=== PATIENT | female | born 1990 | race Caucasian/White ===

== ENCOUNTER 2022-02-22 16:30 | Inpatient (IN) | payer MEDICAID, SELFPAY ==
[2022-02-22 16:30] VITALS: BMI 36.6
[2022-02-22 16:39] VITALS: BP 99/73; PULSE 96; RESP 18; TEMP 36.6; O2SAT 97
--- NOTE | 2022-02-22 17:22 | PC.NURSE ---
ADMISSION- PT DIRECT ADMIT FROM [facility]. REPORTS THAT SHE HEARS VOICES THAT ARE MEAN TO HER. THIS INCREASES HER DEPRESSION AND SI. WAS HAVING SI AT HOSPITAL WITH THOUGHTS OF HANGING SELF. WAS INPATIENT LAST MONTH BUT STATES SHE HAS NOT TAKEN THE MEDS IN ONE MONTH SINCE DISCHARGE BECAUSE THEY DID NOT WORK. DENIES ANY SUBSTANCE ABUSE. UDS NEGATIVE. REPORTS HX OF DEPRESSION, ANXIETY, AND SCHIZOPHRENIA. ANSWERS ARE DELAYED BUT APPROPRIATE TO TOPIC. SHORT ANSWERS USUALLY. FLAT AFFECT.
--- NOTE | 2022-02-22 17:30 | PC.NURSE ---
ADMISSION PT DIRECT ADMIT FROM [facility]. REPORTS THAT SHE HEARS VOICES THAT ARE MEAN TO HER. THIS INCREASES HER DEPRESSION AND SI. WAS HAVING SI AT HOSPITAL WITH THOUGHTS OF HANGING SELF. WAS INPATIENT LAST MONTH BUT STATES SHE HAS NOT TAKEN THE MEDS IN ONE MONTH SINCE DISCHARGE BECAUSE THEY DID NOT WORK. DENIES ANY SUBSTANCE ABUSE. UDS NEGATIVE. REPORTS HX OF DEPRESSION, ANXIETY, AND SCHIZOPHRENIA. ANSWERS ARE DELAYED BUT APPROPRIATE TO TOPIC. SHORT ANSWERS USUALLY. FLAT AFFECT.
[2022-02-22] MEDS: trazodone 50 mg Tablet PO (20:38)
[2022-02-22 21:12] VITALS: BP 111/77; PULSE 84; RESP 16; TEMP 36.4; O2SAT 98
[2022-02-22] MEDS: hyDROXYzine 25 mg Capsule 50 MG PO (21:59)
--- NOTE | 2022-02-22 22:00 | PC.NURSE ---
pt was given trazodone 50mg po at 2037, is now requesting medication for anxiety. pt stated she could not go to sleep because she was having racing thoughts. Vistaril 50mg po given.
[2022-02-23 06:00] VITALS: BP 97/53; PULSE 80; RESP 17; TEMP 36.3; O2SAT 98
--- NOTE | 2022-02-23 11:26 | W.PM.NPUH&PS ---
Providers/Chief Complaint Admitting Physician: Erick Balderas MD Chief Complaint: SI HPI NPU History of Present Illness Kika Mancera is a 31 year old female admitted to an outside emergency department with the following note: Patient is a 31-year-old female via private vehicle.? She presents for evaluation of suicidal ideation at onset a week ago.? She states that she has been feeling very depressed recently.? Patient states that she had a history of depression and suicidal thoughts.? Patient had a plan to hang herself today, so she came to the emergency department to be admitted to inpatient psychiatric care.? Patient states that she has tried to hang herself in the past.? But has not tried any other way to hurt herself.? Patient denies making any attempt at hurting herself today.? Patient has been admitted to inpatient psychiatric care in the past with the last minute admission being around 1 month ago.? He states that she has been hearing voices recently as well.? She takes medication for this and states that she has not missed any recent doses. Affidavit: I am the event specialist food demonstrator who completed a behavioral health assessment on this date.? She also he arrived today via her grandmother's vehicle, with a chief complaint of suicidal ideation with a plan of hanging herself.? Felicia endorses depression and auditory hallucinations that are telling her to kill herself and saying extremely mean and horrible things.? She also a speech was extremely latent, her affect was blunted and she expressed extreme sadness regarding the voices.? I just want everything to end, I cannot live with these voices. She says she was recently hospitalized and started on Lexapro 10 mg and risperidone increased to 4 mg. She says the risperidone does nothing for the voices and she does not like the side effects. She is also been on Abilify and olanzapine which she says did not help the voices. She said the olanzapine seemed to help with her anxiety. She does not remember if she gained weight with the olanzapine. She says that she has gained 30 pounds this year but the olanzapine was previous. She has a 3-month-old child and does not work now and just takes care of the child. The child is in the care of the grandmother currently. She does not remember any other antipsychotics that she has been on. She has not been on Geodon or Seroquel. She has heard of Invega and would like to try that. She says that she has been hearing voices for about 2 years and no medication has helped them. She has been diagnosed with schizophrenia about 2 years ago. Meds NPU Home Medications Medication Instructions Recorded Confirmed Last Taken Type No Known Home Medications 02/22/22 02/22/22 Unknown History Allergies Allergy/AdvReac Type Severity Reaction Status Date / Time No Known Allergies Allergy Verified 02/22/22 16:41 Mental Status Exam MSE Comments: This is a 31-year-old obese female who appears approximately her stated age and is in no acute distress. She is pleasant and cooperative with the evaluation. She is dressed in hospital scrubs with fair grooming. psychomotor activity is normal. Speech is at a regular rate and rhythm, normal volume, good articulation, not pressured. Alert, oriented X3 Attention and concentration appear to be normal. Memory is intact Mood is depressed. Affect is moderately dysphoric. Thought process is logical and goal-directed. Thought content: She admits to auditory hallucinations telling her bad things about herself and that she should kill herself. She denies visual hallucinations. No delusions or paranoia are noted. She has had suicidal ideation but no plan in the hospital and no homicidal ideation. Fund of knowledge is average. Insight and judgment appear to be fair. Impulse control is fair. Vitals/I&O/Wt Last Vital Signs Temp 97.4 F L 02/23/22 06:00 Pulse 80 02/23/22 06:00 Resp 17 02/23/22 06:00 BP 97/53 02/23/22 06:00 Pulse Ox 98 02/23/22 06:00 Weight last 48 hrs Weight 90.718 kg A&P Assessment and plan (1) Schizophrenia: Status: Acute (2) Suicidal ideation: Status: Acute (3) Major depressive disorder: Status: Acute Plan This is a 31-year-old female who reports 2 years of diagnosis of schizophrenia with auditory hallucinations that have not been improved with 3 different antipsychotics. She reports suicidal ideation because of these auditory hallucinations. Plan: 1. Continue Lexapro 10 mg daily. Discontinue Risperdal and start Invega and gradually increase as tolerated. 2. Continue every 15 minute checks for safety. 3. Encourage individual, group and milieu therapies. 4. Encourage sober living treatment after discharge at the highest level of care to which she is willing to commit. 5. We will monitor for safety for herself in the community prior to discharge. Involuntary Hold Information 96 Hour Hold: 96 Hour Involuntary Admission: No Attestations NPU Medical Necessity Statement*: Inpatient hospitalization is medically necessary and the clinically appropriate intervention at this time. We will initiate medications and make changes as indicated. She will be in the hospital for over 2 midnights. Likely length of stay 4-6 days Coding Level of Care Code Acute Revolving Field Assembler for [facility] Fwd Diagnoses Schizophrenia F20.9 Suicidal ideation R45.851 Major depressive disorder F32.9
[2022-02-23] MEDS: escitalopram 10 mg Tablet PO (12:35)
[2022-02-23] MEDS: paliperidone ER 3 mg Tablet PO (12:35)
[2022-02-23 14:00] VITALS: BP 107/75; PULSE 80; RESP 17; TEMP 36.5; O2SAT 98
[2022-02-23 20:12] VITALS: BP 99/69; PULSE 82; RESP 19; TEMP 36.3; O2SAT 97
[2022-02-23] MEDS: trazodone 100 mg Tablet PO (21:35)
[2022-02-23] MEDS: hyDROXYzine 25 mg Capsule 50 MG PO (22:22)
[2022-02-24 06:00] VITALS: BP 90/58; PULSE 78; RESP 16; TEMP 36.7; O2SAT 98
[2022-02-24] MEDS: escitalopram 10 mg Tablet PO (09:44)
[2022-02-24] MEDS: paliperidone ER 3 mg Tablet PO ×2 (09:44→15:20)
--- NOTE | 2022-02-24 11:46 | W.PM.NPUPNS ---
Subjective NPU Subjective: She is still feeling down. She is still having auditory hallucinations. She has had 2 doses of Invega 3 mg. She has not had side effects or benefit from that. She agrees to increase to 6 mg with an extra 3 mg this afternoon. She slept well last night but feels groggy this morning. She thinks 100 mg trazodone might be a little much and would like to try 75 mg. She also agreed to increase the Lexapro to 20 mg daily she has been on that for about 5 weeks. Mental Status Exam MSE Comments: This is a 31-year-old obese female who appears approximately her stated age and is in no acute distress. She is pleasant and cooperative with the evaluation. She is dressed in hospital scrubs with fair grooming. psychomotor activity is mildly decreased. Speech is at a regular rate and rhythm, normal volume, good articulation, not pressured. Alert, oriented X3 Attention and concentration appear to be normal. Memory is intact Mood is depressed. Affect is moderately dysphoric. Thought process is logical and goal-directed. Thought content: She admits to auditory hallucinations telling her bad things about herself and that she should kill herself. She denies visual hallucinations. No delusions or paranoia are noted. She has had suicidal ideation but no plan in the hospital and no homicidal ideation. Fund of knowledge is average. Insight and judgment appear to be fair. Impulse control is fair. Cognition: Patient Appearance: Disheveled/Poor Hygiene Ability to Follow Directions: Good Patient Orientation (long list): Person, Place, Name, Age, Birthday, Month and Year Comprehension Ability: Understands Concepts Hallucination Type: Auditory Delusion Description: Not Present Thought Process: Appropriate Affect: Affect Description: Appropriate, Calm and Depressed Behavior: Patient Behavior: Appropriate and Cooperative Speech Pattern: Appropriate and Clear Vitals/I&O/Wt Last Vital Signs Temp 98.0 F 02/24/22 06:00 Pulse 78 02/24/22 06:00 Resp 16 02/24/22 06:00 BP 90/58 02/24/22 06:00 Pulse Ox 98 02/24/22 06:00 Weight last 48 hrs Weight 90.718 kg A&P Assessment and plan (1) Schizophrenia: Status: Acute (2) Suicidal ideation: Status: Acute (3) Major depressive disorder: Status: Acute Plan This is a 31-year-old female who reports 2 years of diagnosis of schizophrenia with auditory hallucinations that have not been improved with 3 different antipsychotics. She reports suicidal ideation because of these auditory hallucinations. Plan: 1. Increase Lexapro 20 mg daily. Trazodone 75 mg and Invega 6 mg daily 2. Continue every 15 minute checks for safety. 3. Encourage individual, group and milieu therapies. 4. Encourage sober living treatment after discharge at the highest level of care to which she is willing to commit. 5. We will monitor for safety for herself in the community prior to discharge. Involuntary Hold Information 96 Hour Hold: 96 Hour Involuntary Admission: No Attestations NPU Medical Necessity Statement*: Inpatient hospitalization is medically necessary and the clinically appropriate intervention at this time. We will initiate medications and make changes as indicated. Coding Level of Care Code Acute Calibration Specialist for [facility] Diagnoses Schizophrenia F20.9 Suicidal ideation R45.851 Major depressive disorder F32.9
[2022-02-24 14:00] VITALS: BP 132/84; PULSE 94; RESP 18; TEMP 36.8; O2SAT 97
[2022-02-24] MEDS: trazodone 50 mg Tablet 75 MG PO (21:25)
[2022-02-24 22:00] VITALS: BP 110/65; PULSE 93; RESP 19; TEMP 36.8; O2SAT 97
[2022-02-24] MEDS: hyDROXYzine 25 mg Capsule 50 MG PO (22:04)
--- NOTE | 2022-02-24 22:10 | PC.NURSE ---
PT CAME TO THE DESK STATING SHE WAS STILL UNABLE TO SLEEP. PT WAS GIVEN TRAZODONE 75MG AT HS. PT REQUESTED VISTARIL BY NAME. VISTARIL 50MG GIVEN PO AT THIS TIME.
[2022-02-25 06:00] VITALS: BP 93/64; PULSE 83; RESP 17; TEMP 36.4; O2SAT 97
[2022-02-25] MEDS: escitalopram 10 mg Tablet 20 MG PO (09:37)
[2022-02-25] MEDS: paliperidone ER 6 mg Tablet PO (09:37)
--- NOTE | 2022-02-25 10:55 | W.PM.NPUPNS ---
Subjective NPU Subjective: She says she is still depressed and having thoughts of suicide. She does not really want to be alive. The voices are unchanged so far. She has just had 2 doses of Invega 3 mg and 6 mg this morning. She is on Lexapro 10 mg daily. Hopefully those will start kicking in soon. Mental Status Exam MSE Comments: This is a 31-year-old obese female who appears approximately her stated age and is in no acute distress. She is pleasant and cooperative with the evaluation. She is dressed in hospital scrubs with fair grooming. psychomotor activity is mildly decreased. Speech is at a regular rate and rhythm, normal volume, good articulation, not pressured. Alert, oriented X3 Attention and concentration appear to be normal. Memory is intact Mood is depressed. Affect is moderately dysphoric. Thought process is logical and goal-directed. Thought content: She admits to auditory hallucinations telling her bad things about herself and that she should kill herself. She denies visual hallucinations. No delusions or paranoia are noted. She has had suicidal ideation but no plan in the hospital and no homicidal ideation. Fund of knowledge is average. Insight and judgment appear to be fair. Impulse control is fair. Cognition: Patient Appearance: Disheveled/Poor Hygiene Ability to Follow Directions: Good Patient Orientation (long list): Person, Place, Time, Name and Birthday Comprehension Ability: Understands Concepts Hallucination Type: None Delusion Description: Not Present Thought Process: Appropriate Affect: Affect Description: Calm Behavior: Patient Behavior: Appropriate Speech Pattern: Appropriate and Clear Vitals/I&O/Wt Last Vital Signs Temp 97.6 F 02/25/22 06:00 Pulse 83 02/25/22 06:00 Resp 17 02/25/22 06:00 BP 93/64 02/25/22 06:00 Pulse Ox 97 02/25/22 06:00 A&P Assessment and plan (1) Schizophrenia: Status: Acute (2) Suicidal ideation: Status: Acute (3) Major depressive disorder: Status: Acute Plan This is a 31-year-old female who reports 2 years of diagnosis of schizophrenia with auditory hallucinations that have not been improved with 3 different antipsychotics. She reports suicidal ideation because of these auditory hallucinations. Plan: 1. Continue Lexapro 10 mg daily. Discontinue Risperdal and start Invega and gradually increase as tolerated. 2. Continue every 15 minute checks for safety. 3. Encourage individual, group and milieu therapies. 4. Encourage sober living treatment after discharge at the highest level of care to which she is willing to commit. 5. We will monitor for safety for herself in the community prior to discharge. Involuntary Hold Information 96 Hour Hold: 96 Hour Involuntary Admission: No Attestations NPU Medical Necessity Statement*: Inpatient hospitalization is medically necessary and the clinically appropriate intervention at this time. We will initiate medications and make changes as indicated. Coding Level of Care Code Acute Hotel General Manager for [employer] Fwd Diagnoses Schizophrenia F20.9 Suicidal ideation R45.851 Major depressive disorder F32.9
[2022-02-25 14:00] VITALS: BP 106/76; PULSE 85; RESP 18; TEMP 36.8; O2SAT 96
--- NOTE | 2022-02-25 14:51 | PC.SOCIAL ---
Patient did not attend group.
[2022-02-25 20:35] VITALS: BP 101/68; PULSE 78; RESP 18; TEMP 36.9; O2SAT 98
[2022-02-25] MEDS: trazodone 50 mg Tablet 75 MG PO (21:44)
[2022-02-25] MEDS: hyDROXYzine 25 mg Capsule 50 MG PO (22:37)
--- NOTE | 2022-02-25 23:43 | PC.NURSE ---
2237-C/O anxiety given vistaril po.
[2022-02-26 06:00] VITALS: BP 101/62; PULSE 67; RESP 18; TEMP 36.6; O2SAT 97
[2022-02-26] MEDS: paliperidone ER 6 mg Tablet PO (08:10)
[2022-02-26] MEDS: escitalopram 10 mg Tablet 20 MG PO (08:11)
--- NOTE | 2022-02-26 09:38 | PC.NURSE ---
Continues to report fleeting, passing suicidal thoughts of hanging myself with a rope. States she doesn't have a plan in while she is in here, but on the outside. Also reports hearing negative voices that tell her bad things about herself all the time. Contracted for safety. Denies HI and pain at this time.
[2022-02-26 14:00] VITALS: BP 101/64; PULSE 94; RESP 18; TEMP 36.7; O2SAT 97
--- NOTE | 2022-02-26 17:58 | W.PM.NPUPNS ---
Subjective NPU Subjective: Patient presents today continuing to endorse depression and suicidal thoughts. She reports that her sleep has been problematic. We discussed the risk benefits and alternatives of initiating an increase in her trazodone and she understood and agreed to proceed as is documented in this note. We discussed the possibility of considering augmentation with Wellbutrin if there continues to be limited improvement. But we agreed to monitor the changes and talk again in the morning. Mental Status Exam MSE Comments: This is an obese white female in hospital scrubs with adequate grooming and limited eye contact. No abnormal movements except for decreased psychomotor retardation. Cooperative with exam in mild distress. Speech was normal rate and volume. Mood described as depressed, affect congruent. Thought process organized. Thought contact: patient endorses suicidal, but denies homicidal ideation, there were no delusions reported or noted, patient denied auditory or visual hallucinations. Attention and concentration appeared intact and memory appeared reliable but none were formally tested. Patient is alert and oriented times three. Insight and judgment appear limited and impulse control appears impaired. Vitals/I&O/Wt Last Vital Signs Temp 98.1 F 02/26/22 14:00 Pulse 94 02/26/22 14:00 Resp 18 02/26/22 14:00 BP 101/64 02/26/22 14:00 Pulse Ox 97 02/26/22 14:00 A&P Assessment and plan (1) Schizophrenia: Status: Acute (2) Major depressive disorder: Status: Acute (3) Suicidal ideation: Status: Acute Plan This is a 31-year-old female who reports 2 years of diagnosis of schizophrenia with auditory hallucinations that have not been improved with 3 different antipsychotics.? She reports suicidal ideation because of these auditory hallucinations. Plan: 1.? Continue current medication. Lexapro 20 mg daily.? Discontinue Risperdal and started Invega 6 mg p.o. daily and gradually increase as tolerated. May consider augmentation with Wellbutrin. Increase trazodone to 100 mg p.o. nightly. 2.? Continue every 15 minute checks for safety. 3.? Encourage individual, group and milieu therapies. 4.? Encourage sober living treatment after discharge at the highest level of care to which she is willing to commit. 5.? We will explore discharge once active suicidality abates. Involuntary Hold Information 96 Hour Hold: 96 Hour Involuntary Admission: No Attestations NPU Medical Necessity Statement*: Inpatient hospitalization is medically necessary and the clinically appropriate intervention at this time.? We will initiate medications and make changes as indicated. Likely length of stay 2-4 days. Coding Level of Care Code Acute Merchandise Shopper for g Fwd Diagnoses Schizophrenia F20.9 Major depressive disorder F32.9 Suicidal ideation R45.851
[2022-02-26 21:19] VITALS: BP 112/72; PULSE 108; RESP 18; TEMP 36.6; O2SAT 98
[2022-02-26] MEDS: trazodone 50 mg Tablet 100 MG PO (21:29)
[2022-02-26] MEDS: hyDROXYzine 25 mg Capsule 50 MG PO (21:59)
[2022-02-26] MEDS: OLANZapine 5 mg ODT PO (22:49)
[2022-02-27 06:00] VITALS: BP 77/48; PULSE 79; RESP 18; TEMP 36.8; O2SAT 98
[2022-02-27] MEDS: paliperidone ER 6 mg Tablet PO (09:03)
[2022-02-27] MEDS: escitalopram 10 mg Tablet 20 MG PO (09:03)
--- NOTE | 2022-02-27 12:41 | W.PM.NPUPNS ---
Subjective NPU Subjective: Patient presents today reporting that she is feeling okay at some levels but still suicidal. We discussed her psychosocial circumstances including her mother living with her which she reports has not been a recent issue and denies feeling that it is a major factor in how she is feeling right now. We discussed the risk benefits and alternatives of initiating Wellbutrin XL in the morning and she understood and agreed to proceed as is documented in this note. Mental Status Exam MSE Comments: This is an obese white female in hospital scrubs with adequate grooming and limited eye contact. No abnormal movements except for decreased psychomotor retardation. Cooperative with exam in no acute distress. Speech was normal rate and volume. Mood described as depressed, affect congruent. Thought process organized. Thought contact: patient endorses suicidal, but denies homicidal ideation, there were no delusions reported or noted, patient denied auditory or visual hallucinations. Attention and concentration appeared intact and memory appeared reliable but none were formally tested. Patient is alert and oriented times three. Insight and judgment appear limited and impulse control appears impaired. Vitals/I&O/Wt Last Vital Signs Temp 98.2 F 02/27/22 06:00 Pulse 79 02/27/22 06:00 Resp 18 02/27/22 06:00 BP 77/48 02/27/22 06:00 Pulse Ox 98 02/27/22 06:00 A&P Assessment and plan (1) Schizophrenia: Status: Acute (2) Major depressive disorder: Status: Acute (3) Suicidal ideation: Status: Acute Plan This is a 31-year-old female who reports 2 years of diagnosis of schizophrenia with auditory hallucinations that have not been improved with 3 different antipsychotics.? She reports suicidal ideation because of these auditory hallucinations. Plan: 1.? Continue current medication.? Lexapro 20 mg daily.? Discontinue Risperdal and started Invega 6 mg p.o. daily and gradually increase as tolerated.? We will start Wellbutrin XL 150 mg in the morning.? Increased trazodone to 100 mg p.o. nightly. 2.? Continue every 15 minute checks for safety. 3.? Encourage individual, group and milieu therapies. 4.? Encourage sober living treatment after discharge at the highest level of care to which she is willing to commit. 5.? We will explore discharge once active suicidality abates. Involuntary Hold Information 96 Hour Hold: 96 Hour Involuntary Admission: No Attestations NPU Medical Necessity Statement*: Inpatient hospitalization is medically necessary and the clinically appropriate intervention at this time.? We will initiate medications and make changes as indicated.? Likely length of stay 2-4 days. Coding Level of Care Code Acute Telephone Directory Distributor Driver for [facility] Fwd Diagnoses Schizophrenia F20.9 Major depressive disorder F32.9 Suicidal ideation R45.851
[2022-02-27 14:00] VITALS: BP 122/75; PULSE 87; RESP 17; TEMP 36.7; O2SAT 97
[2022-02-27] MEDS: trazodone 50 mg Tablet 100 MG PO (20:46)
[2022-02-27] MEDS: hyDROXYzine 25 mg Capsule 50 MG PO (20:46)
[2022-02-27 20:49] VITALS: BP 116/77; PULSE 106; RESP 17; O2SAT 96
[2022-02-28 05:44] VITALS: BP 129/84; PULSE 71; RESP 16; O2SAT 96
[2022-02-28] MEDS: paliperidone ER 6 mg Tablet PO (09:51)
[2022-02-28] MEDS: escitalopram 10 mg Tablet 20 MG PO (09:51)
[2022-02-28] MEDS: buPROPion XL (24 HR) 150 mg Tablet PO (09:51)
[2022-02-28 13:03] LABS: Glucose Point of Care 170 mg/dL (70-110)
[2022-02-28 14:00] VITALS: BP 136/85; PULSE 88; RESP 17; TEMP 36.7; O2SAT 97
--- NOTE | 2022-02-28 15:07 | P.NPUPN_ITS ---
Subjective NPU Subjective: Patient presents today reporting that she did not feel any ill effects from the Wellbutrin. But also denied any significant changes. Continues to endorse depression and suicidality. We discussed new medication a couple of days and may be considering increasing the Invega. She reports that her sleep has been challenging as well and we discussed the risks, benefits and alternatives to a greater increase in the trazodone 250 mg and she understood and agreed to proceed as documented in this note. Medications: Medication Review Details: This is an obese white female in hospital scrubs with adequate grooming and limited eye contact. No abnormal movements except for mild psychomotor retardation. Cooperative with exam in no acute distress. Speech was slightly decreased rate and volume. Mood described as depressed, affect congruent. Thought process organized. Thought contact: patient endorses suicidal, but denies homicidal ideation, there were no delusions reported or noted, patient denied auditory or visual hallucinations. Attention and concentration appeared intact and memory appeared reliable but none were formally tested. Patient is alert and oriented times three. Insight and judgment appear limited and impulse control appears impaired. Vitals/I&O/Wt Last Vital Signs Temp 98.0 F 02/27/22 14:00 Pulse 71 02/28/22 05:44 Resp 16 02/28/22 05:44 BP 129/84 02/28/22 05:44 Pulse Ox 96 02/28/22 05:44 A&P Assessment and plan (1) Schizophrenia: Status: Acute (2) Major depressive disorder: Status: Acute (3) Suicidal ideation: Status: Acute Plan This is a 31-year-old female who reports 2 years of diagnosis of schizophrenia with auditory hallucinations that have not been improved with 3 different antipsychotics.? She reports suicidal ideation because of these auditory hallucinations. Plan: 1.? Continue current medication.? Lexapro 20 mg daily.? Discontinue Risperdal and started Invega 6 mg p.o. daily and gradually increase as tolerated.? We will start Wellbutrin XL 150 mg in the morning.? Increase trazodone to 150 mg p.o. nightly. 2.? Continue every 15 minute checks for safety. 3.? Encourage individual, group and milieu therapies. 4.? Encourage sober living treatment after discharge at the highest level of care to which she is willing to commit. 5.? We will explore discharge once active suicidality abates. Involuntary Hold Information 96 Hour Hold: 96 Hour Involuntary Admission: No Attestations NPU Medical Necessity Statement*: Inpatient hospitalization is medically necessary and the clinically appropriate intervention at this time.? We will initiate medications and make changes as indicated.? Likely length of stay 2-4 days. Coding Level of Care Code Acute Cleaner Laboratory Equipment for g Fwd Diagnoses Schizophrenia F20.9 Major depressive disorder F32.9 Suicidal ideation R45.851
[2022-02-28] MEDS: trazodone 50 mg Tablet 100 MG PO (20:32)
[2022-02-28] MEDS: hyDROXYzine 25 mg Capsule 50 MG PO (20:32)
[2022-02-28 20:45] VITALS: BP 105/70; PULSE 94; RESP 16; TEMP 36.9; O2SAT 97
[2022-03-01 05:33] VITALS: BMI 36.6
[2022-03-01 05:56] VITALS: BP 101/68; PULSE 81; RESP 17; TEMP 36.6; O2SAT 97
--- NOTE | 2022-03-01 09:06 | P.NPUPN_ITS ---
Subjective NPU Subjective: Patient presents today continuing to report that things are unchanged. She denied feeling anything for the second day with Wellbutrin. We discussed the risk benefits and alternatives of adding 3 mg to her Invega dose and she understood agreed proceed as is documented in this note. She does report that there was a point in the past where she was being managed fairly well on an Invega injection. Mental Status Exam MSE Comments: This is an obese white female in hospital scrubs with adequate grooming and limited eye contact. No abnormal movements except for decreased psychomotor retardation. Cooperative with exam in no acute distress. Speech was normal rate and volume. Mood described as depressed, affect congruent. Thought process organized. Thought contact: patient endorses suicidal, but denies homicidal ideation, there were no delusions reported or noted, patient denied auditory or visual hallucinations. Attention and concentration appeared intact and memory appeared reliable but none were formally tested. Patient is alert and oriented times three. Insight and judgment appear limited and impulse control appears impaired. Vitals/I&O/Wt Last Vital Signs Temp 97.9 F 03/01/22 05:56 Pulse 81 03/01/22 05:56 Resp 17 03/01/22 05:56 BP 101/68 03/01/22 05:56 Pulse Ox 97 03/01/22 05:56 Weight last 48 hrs Weight 90.718 kg A&P Assessment and plan (1) Schizophrenia: Status: Acute (2) Major depressive disorder: Status: Acute (3) Suicidal ideation: Status: Acute Plan This is a 31-year-old female who reports 2 years of diagnosis of schizophrenia with auditory hallucinations that have not been improved with 3 different antipsychotics.? She reports suicidal ideation because of these auditory hallucinations. Plan: 1.? Continue current medication.? Lexapro 20 mg daily.? Discontinue Risperdal and increase Invega to 9 mg p.o. daily and gradually increase as tolerated.? We will start Wellbutrin XL 150 mg in the morning.? Increase trazodone to 150 mg p.o. nightly. 2.? Continue every 15 minute checks for safety. 3.? Encourage individual, group and milieu therapies. 4.? Encourage sober living treatment after discharge at the highest level of care to which she is willing to commit. 5.? We will explore discharge once active suicidality abates. Involuntary Hold Information 96 Hour Hold: 96 Hour Involuntary Admission: No Attestations NPU Medical Necessity Statement*: Inpatient hospitalization is medically necessary and the clinically appropriate intervention at this time.? We will initiate medications and make changes as indicated.? Likely length of stay 2-4 days. Coding Level of Care Code Acute Medical Operations Supervisor for [facility] Fwd Diagnoses Schizophrenia F20.9 Major depressive disorder F32.9 Suicidal ideation R45.851
[2022-03-01] MEDS: buPROPion XL (24 HR) 150 mg Tablet PO (09:13)
[2022-03-01] MEDS: escitalopram 10 mg Tablet 20 MG PO (09:13)
[2022-03-01] MEDS: paliperidone ER 6 mg Tablet PO (09:13)
[2022-03-01 14:00] VITALS: BP 101/69; PULSE 85; RESP 15; TEMP 36.7; O2SAT 98
[2022-03-01] MEDS: trazodone 150 mg Tablet PO (20:40)
[2022-03-01 21:07] VITALS: BP 115/77; PULSE 107; RESP 17; TEMP 36.6; O2SAT 92
[2022-03-01] MEDS: hyDROXYzine 25 mg Capsule 50 MG PO (22:01)
[2022-03-02 06:00] VITALS: BP 108/69; PULSE 73; RESP 16; TEMP 36.7; O2SAT 94
[2022-03-02] MEDS: paliperidone ER 6 mg Tablet 9 MG PO (08:51)
[2022-03-02] MEDS: escitalopram 10 mg Tablet 20 MG PO (08:51)
[2022-03-02] MEDS: buPROPion XL (24 HR) 150 mg Tablet PO (08:52)
[2022-03-02 14:00] VITALS: BP 112/66; PULSE 105; RESP 17; TEMP 36.3; O2SAT 94
--- NOTE | 2022-03-02 18:53 | P.NPUPN_ITS ---
Subjective NPU Subjective: Patient presents today reporting that the increase in trazodone was too much and she like to go back down to the 100 mg that was the initial increase. Otherwise she denies any improvement or changes with the increase in Invega to 9 mg. She continues to have a sort of laissez-faire attitude about her predicament, but denies any issues in her life that could explain why she might not be overly invested in there being improvement. She has had resisting changes or attempts to find a solution however. Mental Status Exam MSE Comments: This is an obese white female in hospital scrubs with adequate grooming and limited eye contact. No abnormal movements except for decreased psychomotor retardation. Cooperative with exam in no acute distress. Speech was normal rate and volume. Mood described as depressed, affect slightly subdued/flat. Thought process organized. Thought contact: patient endorses suicidal, but denies homicidal ideation, there were no delusions reported or noted, patient denied auditory or visual hallucinations. Attention and concentration appeared intact and memory appeared reliable but none were formally tested. Patient is alert and oriented times three. Insight and judgment appear limited and impulse control appears impaired. Vitals/I&O/Wt Last Vital Signs Temp 97.3 F L 03/02/22 14:00 Pulse 105 H 03/02/22 14:00 Resp 17 03/02/22 14:00 BP 112/66 03/02/22 14:00 Pulse Ox 94 03/02/22 14:00 Weight last 48 hrs Weight 90.718 kg A&P Assessment and plan (1) Schizophrenia: Status: Acute (2) Major depressive disorder: Status: Acute (3) Suicidal ideation: Status: Acute Plan This is a 31-year-old female who reports 2 years of diagnosis of schizophrenia with auditory hallucinations that have not been improved with 3 different antipsychotics.? She reports suicidal ideation because of these auditory hallucinations. Plan: 1.? Continue current medication.? Lexapro 20 mg daily.? Discontinue Risperdal and increased Invega to 9 mg p.o. daily and gradually increase as tolerated.? We started Wellbutrin XL 150 mg in the morning.? Decrease trazodone back to 100 mg p.o. nightly. 2.? Continue every 15 minute checks for safety. 3.? Encourage individual, group and milieu therapies. 4.? Encourage sober living treatment after discharge at the highest level of care to which she is willing to commit. 5.? We will explore discharge once active suicidality abates. Involuntary Hold Information 96 Hour Hold: 96 Hour Involuntary Admission: No Attestations NPU Medical Necessity Statement*: Inpatient hospitalization is medically necessary and the clinically appropriate intervention at this time.? We will initiate medications and make changes as indicated.? Likely length of stay 1-3 days. Coding Level of Care Code Acute Systems Applications Programming Lead for [facility] Diagnoses Schizophrenia F20.9 Major depressive disorder F32.9 Suicidal ideation R45.856
[2022-03-02] MEDS: trazodone 150 mg Tablet PO (20:34)
[2022-03-02 21:05] VITALS: RESP 17
[2022-03-02] MEDS: hyDROXYzine 25 mg Capsule 50 MG PO (22:37)
[2022-03-03 06:00] VITALS: BP 90/56; PULSE 87; RESP 18; TEMP 36.7; O2SAT 98
[2022-03-03 08:28] LABS: Estmated Average Glucose 105; Hemoglobin A1C 5.3 % (4.0-6.0)
[2022-03-03 08:29] LABS: Glucose Fasting 92 mg/dL (74-109)
[2022-03-03] MEDS: buPROPion XL (24 HR) 150 mg Tablet PO (09:29)
[2022-03-03] MEDS: paliperidone ER 6 mg Tablet 9 MG PO (09:29)
[2022-03-03] MEDS: escitalopram 10 mg Tablet 20 MG PO (09:29)
--- NOTE | 2022-03-03 13:53 | P.NPUPN_ITS ---
Subjective NPU Subjective: Patient presents today continuing to deny significant improvement in her presentation. And depression. She endorses having no explanation for why things have been so down this time around. She continues to deny any factors that have not been discussed that are leading to her not wanting to go home and deal with her life. We discussed the risk benefits and alternatives of increasing the Wellbutrin XL and she understood agreed proceed as is documented in this note. Mental Status Exam MSE Comments: This is an obese white female in hospital scrubs with adequate grooming and limited eye contact. No abnormal movements except for decreased psychomotor retardation. Cooperative with exam in no acute distress. Speech was normal rate and volume. Mood described as depressed, affect slightly subdu ed/flat. Thought process organized. Thought contact: patient endorses suicidal, but denies homicidal ideation, there were no delusions reported or noted, patient denied auditory or visual hallucinations. Attention and concentration appeared intact and memory appeared reliable but none were formally tested. Patient is alert and oriented times three. Insight and judgment appear limited and impulse control appears impaired. Vitals/I&O/Wt Last Vital Signs Temp 98.0 F 03/03/22 06:00 Pulse 87 03/03/22 06:00 Resp 18 03/03/22 06:00 BP 90/56 03/03/22 06:00 Pulse Ox 98 03/03/22 06:00 A&P Assessment and plan (1) Schizophrenia: Status: Acute (2) Major depressive disorder: Status: Acute (3) Suicidal ideation: Status: Acute Plan This is a 31-year-old female who reports 2 years of diagnosis of schizophrenia with auditory hallucinations that have not been improved with 3 different antipsychotics.? She reports suicidal ideation because of these auditory hallucinations. Plan: 1.? Continue current medication.? Lexapro 20 mg daily.? Discontinue Risperdal and increased Invega to 9 mg p.o. daily and gradually increase as tolerated.? Increase Wellbutrin XL to 300 mg in the morning.? Decreased trazodone back to 100 mg p.o. nightly. 2.? Continue every 15 minute checks for safety. 3.? Encourage individual, group and milieu therapies. 4.? Encourage sober living treatment after discharge at the highest level of care to which she is willing to commit. 5.? We will explore discharge once active suicidality abates. Significant concern about some secondary gain to either being in the hospital or not going home. Involuntary Hold Information 96 Hour Hold: 96 Hour Involuntary Admission: No Attestations NPU Medical Necessity Statement*: Inpatient hospitalization is medically necessary and the clinically appropriate intervention at this time.? We will initiate medications and make changes as indicated.? Likely length of stay 1-3 days. Coding Level of Care Code Acute Motor Pool Driver for [facility] Fwd Diagnoses Schizophrenia F20.9 Major depressive disorder F32.9 Suicidal ideation R45.857
[2022-03-03 14:00] VITALS: BP 111/69; PULSE 87; RESP 17; TEMP 36.6; O2SAT 97
[2022-03-03 20:24] VITALS: BP 110/67; PULSE 102; RESP 18; TEMP 36.8; O2SAT 96
[2022-03-03] MEDS: trazodone 100 mg Tablet PO (20:36)
[2022-03-03] MEDS: acetaminophen 325 mg Tablet 650 MG PO (21:58)
[2022-03-04 06:00] VITALS: BP 126/81; PULSE 88; RESP 17; TEMP 36.5; O2SAT 96
[2022-03-04] MEDS: buPROPion XL (24 HR) 150 mg Tablet 300 MG PO (07:56)
[2022-03-04] MEDS: paliperidone ER 6 mg Tablet 9 MG PO (07:56)
[2022-03-04] MEDS: escitalopram 10 mg Tablet 20 MG PO (07:56)
[2022-03-04] MEDS: acetaminophen 325 mg Tablet 650 MG PO ×2 (08:21→12:05)
--- NOTE | 2022-03-04 12:44 | PC.NURSE ---
DrAdam Notification Dr. Carey requested this RN call dentist/pharmacy to see what she had before for her teeth problem. States her bottom teeth are hurting. This RN called [facility] in [place]. Nurse states she received Clindamycin 300 mg PO QID for [address] Carey and new naren received for Clindmycin 300 mg PO QID times 7 days. Orders placed to pharmacy. Patient notified with education provided. All questions answered and support voiced.
[2022-03-04] MEDS: clindamycin 150 mg Capsule 300 MG PO ×3 (12:47→22:51)
--- NOTE | 2022-03-04 13:56 | P.NPUPN_ITS ---
Subjective NPU Subjective: Patient presents today reporting that she is feeling no different than before. We discussed concerns that nothing seems to have any impact either way and that this feels like almost a chronic state of melancholy. We discussed a plan for discharge tomorrow with ongoing follow-up. And she was open to the plan. She asked several future oriented questions about where she would get her medication and how, if she could be connected with someone who might assist her in filing for disability. She reports that thus far she is been getting by on food stamps etc. we agreed we would reassess the situation in the morning with a tentative plan for discharge tomorrow. Mental Status Exam MSE Comments: This is an obese white female in hospital scrubs with adequate grooming and limited eye contact. No abnormal movements except for decreased psychomotor retardation. Cooperative with exam in no acute distress. Speech was normal rate and volume. Mood described as depressed, affect slightly subdued/fl at. Thought process organized. Thought contact: patient endorses suicidal, but denies homicidal ideation, there were no delusions reported or noted, patient denied auditory or visual hallucinations. Attention and concentration appeared intact and memory appeared reliable but none were formally tested. Patient is alert and oriented times three. Insight and judgment appear limited and impulse control appears impaired. Intellectual ability appears limited to impaired. Vitals/I&O/Wt Last Vital Signs Temp 97.7 F 03/04/22 06:00 Pulse 88 03/04/22 06:00 Resp 17 03/04/22 06:00 BP 126/81 03/04/22 06:00 Pulse Ox 96 03/04/22 06:00 A&P Assessment and plan (1) Schizophrenia: Status: Acute (2) Major depressive disorder: Status: Acute (3) Suicidal ideation: Status: Acute Plan This is a 31-year-old female who reports 2 years of diagnosis of schizophrenia with auditory hallucinations that have not been improved with 3 different antipsychotics.? She reports suicidal ideation because of these auditory hallucinations. Plan: 1.? Continue current medication.? Lexapro 20 mg daily.? Discontinue Risperdal and increased Invega to 9 mg p.o. daily and gradually increase as tolerated.? Increase Wellbutrin XL to 300 mg in the morning.? Decreased trazodone back to 100 mg p.o. nightly. 2.? Continue every 15 minute checks for safety. 3.? Encourage individual, group and milieu therapies. 4.? Encourage sober living treatment after discharge at the highest level of care to which she is willing to commit. 5.? We will consider discharge tomorrow. Patient expressed future orientation although she does still endorsed suicidal thoughts. This appears to be a chronic situation. Significant concern about some secondary gain to either being in the hospital or not going home. Involuntary Hold Information 96 Hour Hold: 96 Hour Involuntary Admission: No Attestations NPU Medical Necessity Statement*: Inpatient hospitalization is medically necessary and the clinically appropriate intervention at this time.? We will initiate medications and make changes as indicated.? Likely length of stay 1-2 days. Coding Level of Care Code Acute Gas Pumping Station Helper for [facility] Fwd Diagnoses Schizophrenia F20.9 Major depressive disorder F32.9 Suicidal ideation R45.859
[2022-03-04 14:00] VITALS: BP 150/79; PULSE 86; RESP 17; TEMP 36.4; O2SAT 98
[2022-03-04] MEDS: trazodone 100 mg Tablet PO (20:29)
[2022-03-04 21:19] VITALS: BP 105/73; PULSE 90; RESP 16; TEMP 36.6; O2SAT 96
[2022-03-04] MEDS: OLANZapine 5 mg ODT PO (21:44)
[2022-03-04] MEDS: hyDROXYzine 25 mg Capsule 50 MG PO (22:51)
[2022-03-05 06:00] VITALS: BP 109/71; PULSE 98; RESP 16; TEMP 36.6; O2SAT 98
[2022-03-05] MEDS: clindamycin 150 mg Capsule 300 MG PO ×2 (06:38→11:49)
[2022-03-05] MEDS: paliperidone ER 6 mg Tablet 9 MG PO (08:39)
[2022-03-05] MEDS: escitalopram 10 mg Tablet 20 MG PO (08:40)
[2022-03-05] MEDS: buPROPion XL (24 HR) 150 mg Tablet 300 MG PO (08:42)
--- NOTE | 2022-03-05 08:54 | PC.NURSE ---
Reports she slept well last night. Denies pain. Reports teeth pain has improved since antibiotic started yesterday. Denies SI/HI and VH. Does report some AH that are mean in nature. Informed patient to tell staff if voices worsen or tell her to harm herself, states she will. Reports the voices have decreased significantly the past few days.
[2022-03-05] MEDS: OLANZapine 5 mg ODT PO (11:50)
--- NOTE | 2022-03-05 12:12 | P.NPUDS_ITS ---
Diagnoses at Discharge Discharge Diagnosis (1) Schizophrenia: Status: Acute (2) Major depressive disorder: Status: Acute (3) Suicidal ideation: Status: Resolved Reason for Visit Reason for Visit: SI Brief History: History of Present Illness Kika Mancera is a 31 year old female admitted to an outside emergency department with the following note: Patient is a 31-year-old female via private vehicle.? She presents for evaluation of suicidal ideation at onset a week ago.? She states that she has been feeling very depressed recently.? Patient states that she had a history of depression and suicidal thoughts.? Patient had a plan to hang herself today, so she came to the emergency department to be admitted to inpatient psychiatric care.? Patient states that she has tried to hang herself in the past.? But has not tried any other way to hurt herself.? Patient denies making any attempt at hurting herself today.? Patient has been admitted to inpatient psychiatric care in the past with the last minute admission being around 1 month ago.? He states that she has been hearing voices recently as well.? She takes medication for this and states that she has not missed any recent doses. 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 She also he arrived today via her grandmother's vehicle, with a chief complaint of suicidal ideation with a plan of hanging herself.? Felicia endorses depression and auditory hallucinations that are telling her to kill herself and saying extremely mean and horrible things.? She also a speech was extremely latent, her affect was blunted and she expressed extreme sadness regarding the voices.? I just want everything to end, I cannot live with these voices. She says she was recently hospitalized and started on Lexapro 10 mg and risperidone increased to 4 mg.? She says the risperidone does nothing for the voices and she does not like the side effects.? She is also been on Abilify and olanzapine which she says did not help the voices.? She said the olanzapine seemed to help with her anxiety.? She does not remember if she gained weight with the olanzapine.? She says that she has gained 30 pounds this year but the olanzapine was previous.? She has a 3-month-old child and does not work now and just takes care of the child.? The child is in the care of the grandmother currently.? She does not remember any other antipsychotics that she has been on.? She has not been on Geodon or Seroquel.? She has heard of Invega and would like to try that.? She says that she has been hearing voices for about 2 years and no medication has helped them.? She has been diagnosed with schizophrenia about 2 years ago. Hospital Course Hospital Course She slowly acclimated to the individual, group and milieu therapy. Risperdal was discontinued and invega started and increased. Wellbutrin and lexapro also added. She had limited improvement and was struggling with the issues of financial sustainability. Concern for secondary gain existed and ultimately a therapeutic discharge date was arranged. At the outside hospital, patient had routine laboratory studies which were within normal limits except for few o utliers. Additionally there was a general medical evaluation which was also within normal limits and revealed no new acute processes. Discharge Summary: At the time of discharge, she denied psychosis or lethality. Mood and anxiety were well managed. Patient endorsed a plan to avoid all drugs of abuse and follow-up with the aftercare recommendations of the treatment team. Patient was evaluated and deemed to be absent credible lethality, and had achieved the maximum benefit from an inpatient hospitalization, so was discharged. Involuntary Hold Information 96 Hour Hold: 96 Hour Involuntary Admission: No Mental Status Exam MSE Comments: This is an obese white female in hospital scrubs with adequate grooming and eye contact. No abnormal movements except for mild psychomotor retardation. Cooperative with exam in no acute distress. Speech was normal rate and volume. Mood described as better, affect congruent. Thought process organized. Thought contact: patient denied suicidal or homicidal ideation, there were no delusions reported or noted, patient denied auditory or visual hallucinations. Attention and concentration appeared intact and memory appeared reliable but none were formally tested. Patient is alert and oriented times three. Insight and judgment appear improving and impulse control appears impaired.? Intellectual ability appears limited to impaired. Discharge Data Studies Completed and Pending: Laboratory Results POC Glucose 170 mg/dL (70-110 ) H 02/28/22 13:00 Fasting Glucose 92 mg/dL (74-109) 03/03/22 08:00 Estimat Average Gl ucose 105 03/03/22 08:00 Hemoglobin A1c 5.3 % (4.0-6.0) 03/03/22 08:00 Vitals: Last Vital Signs Temp 97.9 F 03/05/22 06:00 Pulse 98 03/05/22 06:00 Resp 16 03/05/22 06:00 BP 109/71 03/05/22 06:00 Pulse Ox 98 03/05/22 06:00 Discharge Plan Discharge Patient Disposition: Home Condition: Stable Prescriptions: New trazodone 100 mg Tablet 100 mg PO BEDTIME PRN (Reason: Sleep) 30 Days Qty: 30 1RF escitalopram oxalate 10 mg Tablet 20 mg PO DAILY 30 Days Qty: 60 1RF bupropion HCl 150 mg Tablet Extended Release 24 Hr 300 mg PO DAILY 30 Days Qty: 60 1RF olanzapine 5 mg Tablet,Disintegrating 5 mg PO Q4H PRN (Reason: Agitation/Psychosis) 30 Days Qty: 30 1RF Invega 3 mg tablet extended release 24hr 9 mg PO DAILY 30 Days Qty: 90 1RF Discharge Orders: Discharge Order (Routine); Ordered 03/05/22 Ordered By: Luis Fernando Carey Referrals: [facility]- Dr. Urias [Other] - 03/06/22 3:15 pm (Follow up with medications and referral for Dr. [facility]. ) Discharge Diet: Regular Discharge Activity: Resume usual activity Patient Instructions: Clindamycin (By mouth), Bupropion (By mouth), Trazodone (By mouth), Olanzapine (By mouth), Escitalopram (By mouth), Paliperidone (By mouth), Depression (DC), Schizophrenia (DC), Suicide Prevention (DC), Opioid Safety Discharge Attestations NPU Time Spent in Discharge Care*: less than 30 min Specific Discharge Activities: Specific discharge activities: educating patient, discussing with manager case/social workers/dc planners, documenting/other paperwork and evaluating patient/reviewing data Coding Level of Care Code Acute Chg FW DC note Diagnoses Schizophrenia F20.9 Major depressive disorder F32.9 Suicidal ideation R45.851
[2022-03-05 13:08] VITALS: BP 109/71; PULSE 98; RESP 16; TEMP 36.6; O2SAT 98
[2022-03-05 14:00] VITALS: BP 97/68; PULSE 94; RESP 18; TEMP 36.4; O2SAT 97
--- NOTE | 2022-03-05 15:57 | PC.NURSE ---
Discharge Note All discharge teaching completed. Voices understanding. Went over all appointment times and all medications. Received clothing from [employer] due to not having any on admission. Denies pain. Vitals stable. All questions answered and support voiced. Left facility at [id number]. All prescriptions sent with patient.
== END 2022-03-05 15:57 | disposition home or self-care (01) | DRG 885 ==
PROVIDERS: Psychiatry & Neurology Psychiatry; Admitting Provider Psychiatry & Neurology Psychiatry; Visit Provider Psychiatry & Neurology Psychiatry
DX: F25.1 Schizoaffective disorder, depressive type (principal); R45.851 Suicidal ideations
CPT/HCPCS: 36416; 82947; 82962; 83036; 97150; 97165